=== PATIENT | male | born 1945 | race Caucasian/White ===

== ENCOUNTER → 2016-11-06 | Outpatient (CLI) | payer MEDICARE, BC ==
[~2016-11-06] MED LIST: ALAVERT10 M1 PO; ALENDRONATE SOD70 MG; AMIODARONE PO; ASPIRIN81 M1; ASPIRIN81 MG PO; CALTRATE 600+D PO; CELEBREX PO; COMBIVENT INH14.7 GM; COUMADIN5 MG PO; DIOVAN80 M1; GLUCOSAMINE & C1 CAP PO; LOSARTAN POTASS25 MG PO; LOVENOX120 MG/0.8 INJ; NASONEX17 GM; NITROQUICK0.4 MG SL; OSTEO BI-FLEX1 EACH PO; PHENERGAN25 MG PO; SYMBICORT INH; TOPROL XL 50 MG50 MG PO; VYTORIN 10-40 M1 TAB PO; WARFARIN SODIU7.5 M1 PO
--- NOTE | ~2016-11-06 | BD1 ---
[facility] A Service of [facility] RADIOLOGY TEXT RESULTS PATIENT: ERICK CHAVEZ LOCATION: [facility] : 45 UNIT #: [id number] AGE: [address]: Mathew Cramer MD SEX: M ORDER DR: [id number] [facility] [address] [place], [place] [address] [id number] O MR#: [id number] Acc #: [id number] NAME: ERICK CHAVEZ : 1945 SEX: M STUDY DATE/TIME: 11/06/2016 15:19 UNIT: [facility] ROOM: STUDY DESCRIPTION: BD Dexa Bone Dens 1+ Site Attending Physician: Mathew Cramer M.D. Ordering Physician: Mathew Cramer M.D. Primary Care Physician: Mathew Cramer M.D. MEDICAL IMAGING REPORT This report is preliminary unless electronic signature is present EXAM DXA scan, 11/06/2016 HISTORY Osteoporosis. Rheumatoid arthritis. Fracture of foot and ankle in last 10 years. Smoking history for 40 years. FINDINGS Bone mineral density in the lumbar spine from L1 through L4 is 1.19 g/cm2 which is 0.9 standard deviations above the mean when compared to the young adult reference population which is within the range of normal. This is 1.8 standard deviations above the mean when compared to the age-matched population. Bone mineral density in the left femoral neck was 0.873 g/cm2 which is 0.4 standard deviations below the mean when compared to the young adult reference population which is within the range of normal. This is 0.8 standard deviations above the mean when compared to the age-matched population. IMPRESSION Bone mineral density in the lumbar spine and left hip within the range of normal. Dictated by... Emanuel Mcmanus M.D. THIS IS AN ELECTRONICALLY VERIFIED REPORT Emanuel Mcmanus M.D. at 11/07/2016 7:22 AM GM/gilda TD: 11/07/2016 03:30 [facility] A Service of [facility] RADIOLOGY TEXT RESULTS PATIENT: ERICK CHAVEZ LOCATION: [facility] : 45 UNIT #: [id number] AGE: [address]: Mathew Cramer MD SEX: M ORDER DR: JOB #: [id number] MEDICAL IMAGING REPORT Page 1 of 1 COPY
== END | disposition home or self-care (01) ==
LOC: CWCC 11-03 14:30
DX: M81.0 Age-related osteoporosis without current pathological fracture (principal)
CPT/HCPCS: 77080